=== PATIENT | male | born 1960 | race Two or more races ===

== ENCOUNTER 2024-01-29 09:32 | Emergency (ER) | payer OTHER ==
[~2024-01-29] VITALS: Ht 177.8 cm; Wt 95.0 kg
[2024-01-29 10:40] VITALS: TEMP 98.4; O2SAT 96
[2024-01-29 11:26] VITALS: BP 148/72; PULSE 82; RESP 18
[2024-01-29] MEDS: MORPHINE SULFATE 4 MG/ML SYR/VIAL IM ONE (11:26)
[2024-01-29] MEDS ORDERED: MELO7.5T7 PO (11:57)
[2024-01-29] MEDS ORDERED: ACET-1881 PO (11:57)
== END 2024-01-29 12:15 | disposition home or self-care (01) ==
LOC: ER 09:32
DX: S83.8X2A Sprain of other specified parts of left knee, initial encounter (principal); M23.92 Unspecified internal derangement of left knee; Z79.899 Other long term (current) drug therapy; W01.0XXA Fall on same level from slipping, tripping and stumbling without subsequent striking against object, initial encounter; Y93.89 Activity, other specified; Y92.89 Other specified places as the place of occurrence of the external cause; Y99.0 Civilian activity done for income or pay
CPT/HCPCS: 73562; 96372; 99283; J2270